=== PATIENT | male | born 1975 | race Caucasian/White ===

== ENCOUNTER → 2024-04-22 09:54 | Outpatient (REF) | payer SELFPAY | LOC: HWRAD 09:54 | PROVIDERS: ATTENDING PHYSICIAN Nurse Practitioner | DX: E78.5 Hyperlipidemia, unspecified (principal) | CPT/HCPCS: 75571 ==

== ENCOUNTER → 2024-07-01 10:55 | Outpatient (REF) | payer BC, SELFPAY | LOC: HWRCS 10:55 | PROVIDERS: ATTENDING PHYSICIAN Nurse Practitioner | DX: I51.7 Cardiomegaly (principal) | CPT/HCPCS: 93306 ==

== ENCOUNTER → 2025-01-08 14:56 | Outpatient (REF) | payer BC, SELFPAY | LOC: RCS 14:56 | PROVIDERS: ATTENDING PHYSICIAN Nurse Practitioner | DX: R06.02 Shortness of breath (principal); I51.7 Cardiomegaly; Z82.49 Family history of ischemic heart disease and other diseases of the circulatory system | CPT/HCPCS: 93017 ==

== ENCOUNTER → 2025-02-05 16:05 | Outpatient (REF) | payer BC, SELFPAY | LOC: DHSLP 16:05 | PROVIDERS: ATTENDING PHYSICIAN Nurse Practitioner | DX: G47.30 Sleep apnea, unspecified (principal); R06.83 Snoring | CPT/HCPCS: 95800 ==